=== PATIENT | female | born 1990 | race Caucasian/White ===

== ENCOUNTER 2020-09-22 18:33 | Emergency (ER) | payer BC, SELFPAY ==
[2020-09-22 18:38] VITALS: BP 124/58; PULSE 97; RESP 18; TEMP 37.2; O2SAT 100
--- NOTE | 2020-09-22 19:56 | ED.URI ---
HPI - URI/Sore Throat General Chief Complaint: Upper Respiratory Infection Stated Complaint: Covid symptoms Time Seen by Provider: 09/22/20 18:56 History of Present Illness HPI Narrative: Patient is a 29-year-old female who presents ER with concerns for possible COVID-19 infection. Reports she works at the [employer] and for the last 2 weeks she has been having body aches with fatigue and occasional shortness of breath. Reports subjective fever as well as chills. No obvious close exposure but people are known to be sick in the [employer]. She has had no loss of taste but possibly loss of smell. She was told by her boss that she needed to come in and receive a Covid test before returning to work. Related Data Home Medications Medication Instructions Recorded Confirmed No Home Medications 09/22/20 09/22/20 Allergies Allergy/AdvReac Type Severity Reaction Status Date / Time latex Allergy Rash Verified 09/22/20 18:40 Review of Systems Constitutional: Constitutional: Reports chills, Reports fatigue and Reports fever(s) ENT: Reports nasal congestion and Denies sore throat Respiratory: Respiratory: Denies cough, Reports dyspnea and Denies wheezing PMFSH Past Medical History Medical History (Updated 09/22/20 @ 20:01 by Adam Stockton MD) Healthy female adult Surgical History Surgical History (Updated 09/22/20 @ 19:58 by Adam Stockton MD) No history of previous surgery Social History Social History (Updated 09/22/20 @ 19:58 by Adam Stockton MD) Smoking status: Current every day smoker Gender identity (if verbalized by the patient): Female Exam Narrative: Exam Narrative: GENERAL: Well-appearing, well-nourished, and in no acute distress. HEAD: Normocephalic, atraumatic. CHEST: Clear to auscultation. No respiratory distress. HEART: Regular rate and rhythm. Normal peripheral pulses. EXTREMITIES: Normal range of motion. No edema. NEURO: Alert and oriented x3. PSYCH: Normal mood and affect. Course Course Emergency Course: Swabbed for Covid. Educated on need to isolate until receiving her results. Patient verbalized understanding. Vital Signs Vital signs: Vital Signs Temperature 99 F 09/22/20 18:38 Pulse Rate 97 09/22/20 18:38 Respiratory Rate 18 09/22/20 18:38 Blood Pressure 124/58 L 09/22/20 18:38 Pulse Oximetry 100 09/22/20 18:38 Temperature 99 F 09/22/20 18:38 Pulse Rate 97 09/22/20 18:38 Respiratory Rate 18 09/22/20 18:38 Blood Pressure 124/58 L 09/22/20 18:38 Pulse Oximetry 100 09/22/20 18:38 Discharge Plan Discharge Clinical Impression: Person under investigation for COVID-19 Patient Disposition: Home, Self-Care Condition: Stable Instructions: COVID-19 (Coronavirus Disease 2019) (ED) Additional Instructions: You need to self isolate at home until you receive the results of your Covid test. If it is negative you may return to work when you are 24 hours free of fever. If it is positive you will need to self isolate till cleared by the health department. Return to the ER if you cannot breathe, you cannot keep down food or water, you have additional concerns. Prescriptions: No Action No Home Medications RF: 0 Follow-up/Referrals: PHYSICIAN,MACHINE DESIGN TEACHER [Primary Care Provider] - Omaira Spaulding DO [Physician] - 1 Week Stand Alone Forms: Work/School Release IP
[2020-09-24 18:28] LABS: SARS-CoV-2 RNA PCR Negative
== END 2020-09-22 20:10 | disposition home or self-care (01) ==
PROVIDERS: Emergency Provider Emergency Medicine
DX: R53.83 Other fatigue (principal); R06.02 Shortness of breath; Z20.822 Contact with and (suspected) exposure to COVID-19; F17.200 Nicotine dependence, unspecified, uncomplicated
CPT/HCPCS: 99283; C9803; U0003; U0005